=== PATIENT | female | born 1985 | race Two or more races ===

== ENCOUNTER 2019-05-02 14:09 | Inpatient (IN) | payer OTHER ==
[2019-05-02 17:39] VITALS: BMI 21.3
--- NOTE | 2019-05-02 18:16 | HP ---
COWS - Scale Resting Pulse: 1= NE 81-100 Sweatin= Chills/Flushing Restless Observation: 3= Extraneous Movement Pupil Size: 1= Pupils >than Normal Bone or Joint Aches: 2= Severe Diffuse Aches Runny Nose/ Eye Tearin= Nasal Congestion GI Upset > 30mins: 1= Stomach Cramp Tremor Observation: 1= Tremor [place], Not Seen Yawning Observation: 1= 1-2x During Session Anxiety or Irritability: 1=Feels Anxious/Irritable Goose Flesh Skin: 3=Piloerection COWS Score: 16 CIWA Score Nausea/Vomitin-Mild Nausea/No Vomiting Muscle Tremors: 3 Anxiety: 2 Agitation: 2 Paroxysmal Sweats: 2 Orientation: 0-Oriented Tacttile Disturbances: 0-None Auditory Disturbances: 0-None Visual Disturbances: 0-None Headache: 2-Mild CIWA-Ar Total Score: 12 - Admission Criteria [facility]ASAS Guidelines: Admission for Medically Managed Detox: Requires at least one of the followin. CIWA greater than 12 2. Seizures within the past 24 hours 3. Delirium tremens within the past 24 hours 4. Hallucinations within the past 24 hours 5. Acute intervention needed for co occurring medical disorder 6. Acute intervention needed for co occurring psychiatric disorder 7. Severe withdrawal that cannot be handled at a lower level of care (continued vomiting, continued diarrhea, abnormal vital signs) requiring intravenous medication and/or fluids 8. Admission ROS [facility] Chief Complaint: here for heroin and xanax detox Allergies/Adverse Reactions: Allergies Allergy/AdvReac Type Severity Reaction Status Date / Time chlordiazepoxide AdvReac Rash Verified 05/02/19 17:40 [From Librium] Penicillins AdvReac Swelling Verified 05/02/19 17:40 History of Present Illness: 33 yo with 6 year h/o of xanax use and 2 year h/o IV heroin use. Admitted to [facility] for treatment of L neck abscess- got 2 days of IV abx and according to pt was not sent home with po antibiotics. States was last in detox at [facility] a few months. Pt states never thought about MAT treatment. Denies med problems, does not take medications Pt has no allergy to valium, only to librium xanax- 4mg/day, no seizures heroin- 2 bundles/day, IV- neck and arms, last OD last year, has a narcan kit - Ebola screening Have you traveled outside of the country in the last 21 days: No (N) Have you had contact with anyone from an Ebola affected area: No Do you have a fever: No - Review of Systems Constitutional: No Symptoms Reported EENT: reports: No Symptoms Reported Respiratory: reports: No Symptoms reported Cardiac: reports: No Symptoms Reported GI: reports: No Symptoms Reported : reports: No Symptoms Reported Musculoskeletal: reports: No Symptoms Reported Integumentary: reports: Other (draining abscess L neck) Endocrine: reports: No Symptoms Reported Hematology: reports: No Symptoms Reported Psychiatric: reports: No Sypmtoms Reported Other Systems: Reviewed and Negative Patient History - Patient Medical History Other Medical History: L neck draining abscess that was drained about 1 week - Smoking Cessation Smoking history: Current every day smoker Have you smoked in the past 12 months: Yes Aproximately how many cigarettes per day: 5 Hx Chewing Tobacco Use: Yes Initiated information on smoking cessation: Yes 'Breaking Loose' booklet given: 05/02/19 - Substances abused Heroin Substance route: Injection Frequency: Daily Amount used: 50 Age of first use: 31 Date of last use: 05/02/19 Alprazolam (Xanax) Substance route: Oral Frequency: Daily Amount used: 1 mg Age of first use: 27 Date of last use: 05/01/19 Admission Physical Exam S - Vital Signs Vital Signs: Vital Signs - 24 hr 05/02/19 17:28 Temperature 98.3 F Pulse Rate 50 L Respiratory 16 Rate Blood Pressure 101/66 - Physical General Appearance: Yes: Within Normal Limits, Cachetic HEENTM: Yes: Within Normal Limits, Other (2inch by 1 inch stage 3 unlcer of just above L clavicle, clean appearing wound, mild drainage on dressing) Respiratory: Yes: Lungs Clear Neck: Yes: Other (2inch by 1 inch stage 3 unlcer of just above L clavicle, clean appearing wound, mild drainage on dressing) Cardiology: Yes: Within Normal Limits, Regular Rate Abdominal: Yes: Within Normal Limits, Normal Bowel Sounds Genitourinary: Yes: Within Normal Limits Back: Yes: Within Normal Limits Musculoskeletal: Yes: Within Normal Limits Extremities: Yes: Within Normal Limits, Normal Inspection Neurological: Yes: Within Normal Limits, Motor Strength 5/5 Integumentary: Yes: Within Normal Limits, Track Das (neck and arms/hand) - Diagnostic (1) Opioid use disorder Current Visit: Yes Status: Acute (2) Moderate benzodiazepine use disorder Current Visit: Yes Status: Acute (3) Ulcer at injection site Current Visit: Yes Status: Acute Breathalyzer - Breathalyzer Breathalyzer: 0 Urine Drug Screen - Test Device Lot number: [id number] Expiration date: 01/04/21 - Control Is test valid?: Yes - Results Drug screen NEGATIVE: No Urine drug screen results: MIL-Cocaine, FEN-Fentanyl, MOP-Opiates, BZO- Benzodiazepines Inpatient Rehab Admission - Rehab Decision to Admit Inpatient rehab admission?: No
[2019-05-02] MEDS ORDERED: NICOTINE POLACRILEX 2 MG GUM BUC PRN (18:30)
[2019-05-02] MEDS ORDERED: diazePAM 5 MG TABLET PO PRN (18:30)
[2019-05-02] MEDS ORDERED: MENTHOL/PHENOL 1 EACH UD MM PRN (18:30)
[2019-05-02] MEDS ORDERED: MAGNESIUM HYDROX 2400MG/30ML ORAL SUSPENSION 30 ML CUP PO PRN (18:30)
[2019-05-02] MEDS ORDERED: MAGNESIUM CITRATE 300 ML BOTTLE PO PRN (18:30)
[2019-05-02] MEDS ORDERED: ACETAMINOPHEN 325 MG TABLET (FP) PO PRN ×2 (18:30)
[2019-05-02] MEDS ORDERED: cloNIDine HCL 0.1 MG TABLET PO PRN (18:30)
[2019-05-02] MEDS ORDERED: MAG HYDROX/AL HYDROX/SIMETH 30 ML UNIT-DOSE CUP PO PRN (18:30)
[2019-05-02] MEDS ORDERED: BISMUTH SUBSALICYLATE 524 MG/30 ML UD PO PRN (18:30)
[2019-05-02] MEDS ORDERED: METHADONE HCL 10 MG TABLET (FOR DETOX USE ONLY) PO ONE (19:00)
[2019-05-02] MEDS: THIAMINE HCL 100 MG TABLET (FP) PO SCH (22:12)
[2019-05-02] MEDS: diazePAM 5 MG TABLET PO SCH (22:12)
[2019-05-02] MEDS: MELATONIN 5 MG TABLETS PO PRN (22:13)
[2019-05-03] MEDS: diazePAM 5 MG TABLET PO SCH ×3 (05:25→22:12)
[2019-05-03] MEDS ORDERED: METHADONE HCL 10 MG TABLET (FOR DETOX USE ONLY) ONE (08:24)
[2019-05-03] MEDS ORDERED: METHADONE HCL 5 MG TABLET (FOR DETOX USE ONLY) ONE (08:25)
[2019-05-03] MEDS ORDERED: METHADONE (DETOX) 20 MG, METHADONE (DETOX) 5 MG PO ONE (10:00)
[2019-05-03] MEDS: PRENATAL VITAMINS W/ FOLIC ACID TABLET (FP) PO SCH (10:22)
--- NOTE | 2019-05-03 10:49 | EKG ---
Test Reason : Blood Pressure : / mmHG Vent. Rate : 043 BPM Atrial Rate : 043 BPM P-R Int : 156 ms QRS Dur : 106 ms QT Int : 462 ms P-R-T Axes : 060 048 031 degrees QTc Int : 390 ms MARKED SINUS BRADYCARDIA ABNORMAL ECG NO PREVIOUS ECGS AVAILABLE Confirmed by BONNIE JEFFERSON MD ([id number]) on 05/03/2019 10:49:20 AM Referred By: DR TOVAR Confirmed By:BONNIE JEFFERSON MD
--- NOTE | 2019-05-03 15:04 | PN ---
[facility] CIWA - CIWA Score Nausea/Vomitin-Mild Nausea/No Vomiting Muscle Tremors: 3 Anxiety: 2 Agitation: 1-Slight > Activity Paroxysmal Sweats: 2 Orientation: 0-Oriented Tacttile Disturbances: 1-Very Mild Itch/Numbness Auditory Disturbances: 1-Very Mild Visual Disturbances: 0-None Headache: 1-Very Mild CIWA-Ar Total Score: 12 [facility] COWS - Scale Resting Pulse: 0= IN 80 or Below Sweatin= Chills/Flushing Restless Observation: 0= Sits Still Pupil Size: 0= Normal to Room Light Bone or Joint Aches: 1= Mild Discomfort Runny Nose/ Eye Tearin= None GI Upset > 30mins: 2= Nausea/Diarrhea Tremor Observation of Outstretched Hands: 2= Slight Tremor Visible Yawning Observation: 1= 1-2x During Session Anxiety or Irritability: 2=Irritable/Anxious Goose Flesh Skin: 3=Piloerection COWS Score: 12 [facility] Progress Note (SOAP) Subjective: 33 years old female amitted on 05/02/19 for benzo and opiate withdrawal sx management treated with valium and methadone detox regimen patient ate breakfast and lunch no troubld chewing and swallowing tolerated food and fluid well ambulating on hallway social with peers in day room Objective: 05/03/19 15:02 Vital Signs Temperature 98.3 F 05/03/19 13:50 Pulse Rate 48 L 05/03/19 13:50 Respiratory Rate 18 05/03/19 13:50 Blood Pressure 123/75 05/03/19 13:50 O2 Sat by Pulse Oximetry (%) Laboratory Last Values POC Urine HCG, Qual Negative 05/02/19 18:06 05/03/19 15:03 admission lab ordered result pending Assessment: 05/03/19 15:03 benzo and opiate withdrawal sx Plan: continue valium and methadone detox regimen
[2019-05-03] MEDS: THIAMINE HCL 100 MG TABLET (FP) PO SCH (22:12)
[2019-05-03] MEDS: MELATONIN 5 MG TABLETS PO PRN (22:13)
[2019-05-04] MEDS: diazePAM 5 MG TABLET PO SCH ×2 (05:30→17:19)
[2019-05-04] MEDS: METHOCARBAMOL 500 MG TABLET PO PRN (05:31)
[2019-05-04] MEDS: IBUPROFEN 400 MG TABLET (FP) PO PRN ×2 (05:31→10:33)
[2019-05-04] MEDS: hydrOXYzine PAMOATE 25 MG CAPSULE (FP) PO PRN ×2 (05:33→22:15)
[2019-05-04] MEDS ORDERED: METHADONE HCL 10 MG TABLET (FOR DETOX USE ONLY) PO ONE (10:00)
[2019-05-04] MEDS: PRENATAL VITAMINS W/ FOLIC ACID TABLET (FP) PO SCH (10:33)
--- NOTE | 2019-05-04 11:43 | PN ---
[facility] CIWA - CIWA Score Nausea/Vomitin-Mild Nausea/No Vomiting Muscle Tremors: 2 Anxiety: 2 Agitation: 2 Paroxysmal Sweats: 1-Minimal Palms Moist Orientation: 0-Oriented Tacttile Disturbances: 0-None Auditory Disturbances: 0-None Visual Disturbances: 0-None Headache: 1-Very Mild CIWA-Ar Total Score: 9 [facility] COWS - Scale Resting Pulse: 0= GA 80 or Below Sweatin= Chills/Flushing Restless Observation: 0= Sits Still Pupil Size: 0= Normal to Room Light Bone or Joint Aches: 1= Mild Discomfort Runny Nose/ Eye Tearin= Nasal Congestion GI Upset > 30mins: 2= Nausea/Diarrhea Tremor Observation of Outstretched Hands: 2= Slight Tremor Visible Yawning Observation: 1= 1-2x During Session Anxiety or Irritability: 1=Feels Anxious/Irritable Goose Flesh Skin: 0=Smooth Skin COWS Score: 9 [facility] Progress Note (SOAP) Subjective: 33 years old female admitted on 05/02/19 for benzo and opiate withdrawal sx management treated with valium and methadone detox regimen ate breakfast and lunch tolerated food and fluid well Objective: 05/04/19 11:42 Vital Signs Temperature 98.6 F 05/04/19 09:18 Pulse Rate 52 L 05/04/19 09:18 Respiratory Rate 18 05/04/19 09:18 Blood Pressure 131/62 05/04/19 09:18 O2 Sat by Pulse Oximetry (%) Laboratory Last Values POC Urine HCG, Qual Negative 05/02/19 18:06 05/04/19 11:43 lab pending Assessment: 05/04/19 11:43 benzo and opiate withdrawal sx Plan: continue valium and methadone detox regimen
[2019-05-04 12:59] LABS: HEMATOCRIT 34.6 % (32.4-45.2); MCH 24.8 pg (25.7-33.7); MCHC 31.8 g/dl (32.0-36.0); MEAN CELL VOLUME 77.8 fl (80-96); MEAN PLT VOLUME 8.9 fl (7.5-11.1); PLATELET COUNT 386 K/MM3 (134-434); RBC 4.44 M/mm3 (3.60-5.2); RDW 16.5 % (11.6-15.6); WHITE BLOOD COUNT 8.5 K/mm3 (4.0-10.0)
[2019-05-04 13:17] LABS: ALBUMIN 2.8 g/dl (3.4-5.0); BILIRUBIN,TOTAL 0.2 mg/dL (0.2-1); BLOOD UREA NITROGEN 9.4 mg/dL (7-18); CALCIUM 9.2 mg/dL (8.5-10.1); CREATININE 0.8 mg/dL (0.55-1.3); POTASSIUM 4.3 mmol/L (3.5-5.1); TOT PROT 7.4 g/dl (6.4-8.2)
[2019-05-04] MEDS: THIAMINE HCL 100 MG TABLET (FP) PO SCH (22:15)
[2019-05-04] MEDS: MELATONIN 5 MG TABLETS PO PRN (22:15)
[2019-05-05] MEDS: hydrOXYzine PAMOATE 25 MG CAPSULE (FP) PO PRN (05:39)
[2019-05-05] MEDS: METHOCARBAMOL 500 MG TABLET PO PRN (05:41)
[2019-05-05] MEDS ORDERED: diazePAM 5 MG TABLET PO ONE (06:00)
[2019-05-05 06:14] VITALS: PULSE 44
[2019-05-05] MEDS ORDERED: METHADONE HCL 10 MG TABLET (FOR DETOX USE ONLY) ONE (09:22)
[2019-05-05] MEDS ORDERED: METHADONE HCL 5 MG TABLET (FOR DETOX USE ONLY) ONE (09:23)
[2019-05-05 09:26] VITALS: BP 105/65; TEMP 97.8
[2019-05-05] MEDS: PRENATAL VITAMINS W/ FOLIC ACID TABLET (FP) PO SCH (09:44)
[2019-05-05] MEDS ORDERED: METHADONE (DETOX) 10 MG, METHADONE (DETOX) 5 MG PO ONE (10:00)
--- NOTE | 2019-05-05 11:13 | DS ---
[facility] Detox Discharge Summary Admission Date: 05/02/19 Discharge Date: 05/05/19 - History Present History: Opioid Dependence, Sedative Dependence - Physical Exam Results Vital Signs: Vital Signs Temperature 97.8 F 05/05/19 09:26 Pulse Rate 44 L 05/05/19 09:26 Respiratory Rate 05/05/19 09:26 Blood Pressure 105/65 05/05/19 09:26 O2 Sat by Pulse Oximetry (%) - Treatment Hospital Course: Detox Protocol Followed - Medication Discharge Medications: Ambulatory Orders NK [No Known Home Medication] 05/02/19 - Diagnosis (1) Moderate benzodiazepine use disorder Current Visit: Yes Status: Chronic (2) Opioid use disorder Current Visit: Yes Status: Chronic (3) 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
[2019-05-06] MEDS ORDERED: METHADONE HCL 10 MG TABLET (FOR DETOX USE ONLY) PO ONE (10:00)
[2019-05-07] MEDS ORDERED: METHADONE HCL 5 MG TABLET (FOR DETOX USE ONLY) PO ONE (06:00)
== END 2019-05-05 11:45 | disposition left against medical advice (07) | DRG 770 ==
LOC: YASAS 14:09 → Y3N 18:43
PROVIDERS: ADMIT Allergy & Immunology; ATTEND Allergy & Immunology
PROC: HZ2ZZZZ Detoxification Services for Substance Abuse Treatment (ICD-10-PCS; principal; 2019-05-02)
DX: F11.23 Opioid dependence with withdrawal (principal); F13.230 Sedative, hypnotic or anxiolytic dependence with withdrawal, uncomplicated; F17.210 Nicotine dependence, cigarettes, uncomplicated; L89.893 Pressure ulcer of other site, stage 3; Z88.0 Allergy status to penicillin; Z88.8 Allergy status to other drugs, medicaments and biological substances; Z59.0 Homelessness
CPT/HCPCS: 36415; 80053; 81025; 85027; 86593; 93005; 93010